=== PATIENT | male | born 1980 ===

== ENCOUNTER 2018-08-05 15:14 | Emergency (ER) | payer OTHER ==
--- NOTE | 2018-08-05 17:14 | C.PDOC ---
Time Seen by Provider: 08/05/18 15:40 Chief Complaint (Nursing): Back Pain Past Medical History - Social History Hx Alcohol Use: No Hx Substance Use: No - Immunization History Hx Tetanus Toxoid Vaccination: No Hx Influenza Vaccination: No Hx Pneumococcal Vaccination: No Disposition - Disposition Forms: [employer] (Kyrgyz)
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
--- NOTE | 2018-08-05 17:19 | RAD ---
Date of service: 08/05/2018 PROCEDURE: Left Knee Radiographs. HISTORY: Pain. COMPARISON: None. FINDINGS: BONES: Normal. No fracture. JOINTS: Normal. No osteoarthritis. JOINT EFFUSION: None. OTHER FINDINGS: None. IMPRESSION: Normal radiographs of the left knee.
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
[2018-08-05 17:29] VITALS: BP 137/68; PULSE 87; RESP 18; TEMP 98.9; O2SAT 99
== END 2018-08-05 17:32 | disposition home or self-care (01) ==
LOC: C.ER 15:14
DX: S40.012A Contusion of left shoulder, initial encounter (principal); S70.02XA Contusion of left hip, initial encounter; V03.90XA Pedestrian on foot injured in collision with car, pick-up truck or van, unspecified whether traffic or nontraffic accident, initial encounter; Y92.410 Unspecified street and highway as the place of occurrence of the external cause